=== PATIENT | male | born 1960 | race Hispanic/Latino ===

== ENCOUNTER 2023-07-24 10:24 | Observation (INO) | payer SELFPAY ==
[2023-07-17 14:01] LABS: BASOPHILS % 0.2 % (0.0-1.0); EOSINOPHILS % 0.5 % (0.0-6.0); HEMOGLOBIN 14.9 g/dL (14.0-18.0); LYMPHOCYTES # (AUTO) 1.7 (1.0-3.2); LYMPHOCYTES % 30.2 % (18.0-39.1); MEAN CORPUSCULAR HEMOGLOBIN 28.2 pg (28-32); MEAN CORPUSCULAR HGB CONC 33.9 g/dL (31-35); MEAN CORPUSCULAR VOLUME 83.2 fL (81-99); MONOCYTES # (AUTO) 0.5 (0.2-0.8); MONOCYTES % 8.6 % (4.4-11.3); NEUTROPHILS # (AUTO) 3.4 (2.1-6.9); NEUTROPHILS % 60.3 % (38.7-80.0); PLATELET COUNT 225 x10e3/uL (140-360); RED BLOOD COUNT 5.29 x10e6/uL (4.3-5.7); RED CELL DISTRIBUTION WIDTH 13.6 % (11.7-14.4); WHITE BLOOD COUNT 5.69 x10e3/uL (4.8-10.8)
[2023-07-17 14:26] LABS: ALBUMIN 4.1 g/dL (3.5-5.0); ALBUMIN/GLOBULIN RATIO 1.2 (0.8-2.0); ANION GAP 10.3 mmol/L (8-16); CREATININE, SERUM 1.05 mg/dL (0.72-1.25); POTASSIUM 4.3 mmol/L (3.5-5.1)
[~2023-07-24] VITALS: Ht 172.7 cm; Wt 78.0 kg
[~2023-07-24 10:24] MED LIST: ALPRAZOLAM1 MG PO; ASPIR 8181 MG PO; ATORVASTATIN CA20 MG PO; FINASTERIDE5 MG PO; FLOMAX0.4 MG PO; METFORMIN HCL500 MG PO; PROSTATE SR SO1 EACH PO; VASOTEC10 M1 PO
[2023-07-24] MEDS ORDERED: LACTATED RINGER'S 1,000 ML ONE (10:32)
[2023-07-24] MEDS ORDERED: CEFAZOLIN SODIUM 2 GM ONE (10:58)
[2023-07-24] MEDS ORDERED: DEXAMETHASONE SOD PHOS INJ 4 MG/ML SDV ONE (11:46)
[2023-07-24] MEDS ORDERED: SEVOFLURANE INHAL SOLN 250 ML PEN BTL ONE (11:46)
[2023-07-24] MEDS ORDERED: ROCURONIUM BROMIDE 10 MG/ML 5ML VIAL IV ONE (11:46)
[2023-07-24] MEDS ORDERED: LIDOCAINE HCL 2% LOCAL INJ 5 ML SDV VIAL INJ ONE (11:46)
[2023-07-24] MEDS ORDERED: PHENYLEPHRINE HCL 1% 10 MG/ML VIAL ONE (11:46)
[2023-07-24] MEDS ORDERED: ONDANSETRON HCL INJ 2MG/ML 2ML 2 MG/ML VIAL ONE (11:46)
[2023-07-24] MEDS ORDERED: KETOROLAC TROMETHAMINE 30 MG/ML VIAL ONE (11:46)
[2023-07-24] MEDS ORDERED: SUCCINYLCHOLINE CHLORIDE 20 MG/ML 10ML VIAL ONE (11:46)
[2023-07-24] MEDS ORDERED: PROPOFOL IV EMULSION 10 MG/ML 20 ML VIAL ONE (11:46)
[2023-07-24] MEDS ORDERED: MIDAZOLAM HCL 2 MG/2 ML VIAL ONE (12:12)
[2023-07-24] MEDS ORDERED: FENTANYL CITRATE/PF 100MCG/2 ML INJ ONE (12:12)
[2023-07-24] MEDS ORDERED: IOPAMIDOL 610MG/1ML 300 MG/ML VIAL IV ONE (13:14)
[2023-07-24] MEDS ORDERED: SUGAMMADEX SODIUM 200 MG/2 ML VIAL IV ONE (14:16)
[2023-07-24] MEDS ORDERED: ACETAMINOPHEN 1000 MG/100 ML 100 ML IV ONE (14:17)
[2023-07-24] MEDS ORDERED: SOLIFENACIN SUCCINATE 5 MG TAB PO ONE ×3 (15:30→15:35)
[2023-07-24] MEDS ORDERED: ONDANSETRON HCL INJ 2MG/ML 2ML 2 MG/ML VIAL IV PRN (15:45)
[2023-07-24] MEDS ORDERED: Morphine 2mg Syringe 2 MG/ML SYR IV PRN (15:45)
[2023-07-24] MEDS ORDERED: ALPRAZOLAM 1 MG TAB PO PRN (15:45)
[2023-07-24 17:15] VITALS: BP 102/63; PULSE 66; RESP 21; TEMP 97.5; O2SAT 100
[2023-07-24] MEDS ORDERED: ACETAMINOPHEN/CODEINE 300MG - 30MG TAB PO PRN (18:30)
[2023-07-24] MEDS: DEXTROSE 5%/0.45% SOD CHL 1,000 ML IV SCH (18:38)
[2023-07-24 18:40] VITALS: BP 102/63; PULSE 66; RESP 21; TEMP 97.5; O2SAT 100
[2023-07-24 20:00] VITALS: BP 111/64; PULSE 94; RESP 17; TEMP 97.8; O2SAT 100
[2023-07-24] MEDS ORDERED: ATORVASTATIN 20 MG TAB PO SCH (21:00)
[2023-07-25] VITALS: BP 103/69; PULSE 58; RESP 17; TEMP 97.7; O2SAT 100
[2023-07-25] MEDS: DEXTROSE 5%/0.45% SOD CHL 1,000 ML IV SCH ×2 (01:51→08:36)
[2023-07-25 04:00] VITALS: BP 108/71; PULSE 65; RESP 17; TEMP 97.8; O2SAT 100
[2023-07-25 08:28] VITALS: BP 102/65; PULSE 63; RESP 17; TEMP 98.1; O2SAT 98
[2023-07-25 08:35] VITALS: BP 102/65
[2023-07-25] MEDS ORDERED: SOLIFENACIN SUCCINATE 5 MG TAB PO SCH (09:00)
[2023-07-25] MEDS ORDERED: ENALAPRIL MALEATE 10 MG TAB PO SCH (09:00)
[2023-07-25] MEDS ORDERED: ONDANSETRON HCL 4 MG ORAL DISINTEGRATING TAB PO PRN (11:30)
== END 2023-07-25 11:31 | disposition home or self-care (01) ==
LOC: OR 10:24 → PACU V 15:14 → MED/SURG 16:04
PROVIDERS: ADMIT Urology; ATTEND Urology
DX: N40.1 Benign prostatic hyperplasia with lower urinary tract symptoms (principal); N13.8 Other obstructive and reflux uropathy; N35.919 Unspecified urethral stricture, male, unspecified site; E11.9 Type 2 diabetes mellitus without complications; I10 Essential (primary) hypertension; E78.5 Hyperlipidemia, unspecified; K21.9 Gastro-esophageal reflux disease without esophagitis; F41.9 Anxiety disorder, unspecified; Z01.810 Encounter for preprocedural cardiovascular examination; Z01.812 Encounter for preprocedural laboratory examination; Z01.818 Encounter for other preprocedural examination; Z79.82 Long term (current) use of aspirin; Z79.899 Other long term (current) drug therapy; Z84.1 Family history of disorders of kidney and ureter
CPT/HCPCS: 36415; 52601; 71046; 80053; 85025; 87086; 88305; 93005; C1758; G0378 ×2; J0131; J0330; J1100; J1885; J2001; J2250; J2371; J2405; J2704; J3010; J7121; Q9967